=== PATIENT | male | born 1960 | race Caucasian/White ===

== ENCOUNTER 2023-02-05 06:19 | Inpatient (IN) ==
--- NOTE | 2023-01-08 09:58 | PAT Medication Instructions ---
Medication Instructions Date of Service January 08, 2023 Home Medications Medication Instructions Recorded atorvastatin 20 mg tablet 20 mg PO QPM #90 tabs 02/05/22 metoprolol tartrate 25 mg tablet 25 mg PO BID #180 tabs 09/12/22 biotin 5 mg tablet 5 mg PO QAM coenzyme Q10 200 mg capsule 200 mg PO QAM magnesium oxide 500 mg capsule 500 mg PO QAM zinc gluconate 50 mg tablet 50 mg PO QAM calcium carbonate-vitamin D3 [Calcium 600 + D(3)] 1 tab PO QAM glucosamine HCl 750 mg tablet 750 mg PO QAM omega-3 fatty acids [[place]-3] 1 tab PO QAM vitamin B complex 1 tab PO QAM baclofen 20 mg tablet 20 mg PO BID tizanidine 4 mg capsule 8 mg PO HS PRN atorvastatin 20 mg tablet 20 mg PO QPM metoprolol tartrate 25 mg tablet 25 mg PO BID aspirin 81 mg tablet,delayed release 81 mg PO QAM hnulsvaolngcd-snglvimzchanrxpkdl-isnrifjphfdpn capsule 1 cap PO UD PRN ASK your surgeon for instructions wzckirqpaqgkg-idpzjcyaxsbmkkfvzw-ptqzshorikpzv capsule 1 cap PO UD PRN STOP taking 2 weeks before surgery (or as soon as possible if surgery is within 2 weeks) biotin 5 mg tablet 5 mg PO QAM coenzyme Q10 200 mg capsule 200 mg PO QAM glucosamine HCl 750 mg tablet 750 mg PO QAM omega-3 fatty acids [[place]-3] 1 tab PO QAM DO NOT take the morning of surgery magnesium oxide 500 mg capsule 500 mg PO QAM zinc gluconate 50 mg tablet 50 mg PO QAM calcium carbonate-vitamin D3 [Calcium 600 + D(3)] 1 tab PO QAM vitamin B complex 1 tab PO QAM baclofen 20 mg tablet 20 mg PO BID Take morning of surgery With a small sip of water, OTHERWISE NOTHING TO EAT OR DRINK AFTER MIDNIGHT: metoprolol tartrate 25 mg tablet 25 mg PO BID aspirin 81 mg tablet,delayed release 81 mg PO QAM (unless directed otherwise by surgeon) Take evening before surgery baclofen 20 mg tablet 20 mg PO BID tizanidine 4 mg capsule 8 mg PO HS PRN(if needed) atorvastatin 20 mg tablet 20 mg PO QPM metoprolol tartrate 25 mg tablet 25 mg PO BID Other Notes If you have any questions please call us at [phone] or [phone] or [phone] or [phone]
--- NOTE | 2023-01-15 10:08 | History & Physical Report ---
Date of Service January 15, 2023 date of surgery: 02/05/23 Procedure: Left Total Knee Arthroplasty Surgeon: Ag Hernandez Assessment & Plan (1) Arthritis of knee, left: Plan: Risk and benefits of the procedure were discussed, he would like to proceed with a left total knee arthroplasty. Plan will be overnight stay with discharge home with home health physical therapy. Will place on aspirin 81 mg twice a day for 1 month postop DVT prophylaxis he otherwise has no other questions or concerns, follow-up 2 weeks postop The risks and benefits have been discussed including, but not limited to, risk of infection, nerve injury, stiffness, loss of motion, failure to improve, etc. Reasonable outcomes and options of treatment were discussed. An explanation of appropriate alternatives to the procedure that may be advantageous were discussed and their risks and benefits, as well as the risks and benefits of not proceeding with treatment. I offered to answer any additional inquiries concerning the treatment involved. All the patient's questions were answered. The patient is agreeable, understanding of the treatment plan and alternatives, and wishes to proceed with the treatment plan. History of Present Illness Chief Complaint: left knee pain Primary Care Provider: Carter Cintron MD Earnest is a pleasant 62-year-old male presents for preop evaluation prior to his upcoming left total knee replacement on February 05. He has been having pain in his knee for many years, which gradually worsened, he has complaints of pain decreased range of motion and instability. He has a history of left knee arthroscopy by Dr. Varghese in 2013. Since that time he is undergone cortisone injection as well as viscosupplementation with only mild improvement. After discussing further care he would like to proceed with left total knee arthroplasty Allergies Allergy/AdvReac Type Severity Reaction Status Date / Time No Known Drug Allergies Allergy Verified 01/03/23 09:01 Home Medications Medication Instructions Recorded Confirmed Type biotin 5 mg tablet 5 mg PO QAM 05/01/19 01/03/23 History coenzyme Q10 200 mg capsule 200 mg PO QAM 05/01/19 01/03/23 History magnesium oxide 500 mg capsule 500 mg PO QAM 05/01/19 01/03/23 History zinc gluconate 50 mg tablet 50 mg PO QAM 05/01/19 01/03/23 History calcium carbonate-vitamin D3 1 tab PO QAM 07/10/19 01/03/23 History [Calcium 600 + D(3)] glucosamine HCl 750 mg tablet 750 mg PO QAM 07/10/19 01/03/23 History omega-3 fatty acids [[place]-3] 1 tab PO QAM 07/10/19 01/03/23 History vitamin B complex 1 tab PO QAM 07/10/19 01/03/23 History baclofen 20 mg tablet 20 mg PO BID 07/21/20 01/03/23 History tizanidine 4 mg capsule 8 mg PO HS PRN Muscle Spasm 07/21/20 01/03/23 History atorvastatin 20 mg tablet 20 mg PO QPM #90 tabs 02/05/22 01/03/23 Rx metoprolol tartrate 25 mg tablet 25 mg PO BID #180 tabs 09/12/22 01/03/23 Rx aspirin 81 mg tablet,delayed 81 mg PO QAM 01/03/23 01/03/23 History release viqekwcbiersh-ldhwwkflpqnbwjmvrl-yfeftguubvilv 1 cap PO UD PRN Migraine Headache 01/03/23 01/03/23 History capsule Past Med/Surg History Medical History History of atrial fibrillation Since episode approximately 7 years ago Taking metoprolol, Follows with Dr. Mansfield Hyperlipidemia Osteoarthritis Sleep apnea CPAP Temporomandibular joint disorder Wears mouth guard Surgical History History of arthroscopy of left knee History of colonoscopy History of hand surgery left History of hernia surgery x2 History of shoulder surgery left shoulder History of shoulder surgery right shoulder History of surgery left femur/left lower leg History of surgery right femur (multiple) History of wisdom tooth extraction Family History Other No family history of adverse response to anesthesia Social History Smoking Status: Never smoker Second Hand Exposure: No; Do You Dip or Chew Tobacco: No; Hx Alcohol Use: Yes ("on average one cocktail a night") Alcohol type: hard liquor Hx Substance Use: No Preferred Language: Telugu Communication Ability: Effective Tool/Die Maker Required: No Beliefs That Will Affect Care: None Current Living Situation: Spouse Feels Safe at Home: Yes Assistive Devices: CPAP and Glasses Review of Systems Review of Systems: All systems reviewed & are unremarkable except as noted in HPI & below Constitutional: no fever, no chills and no sweats Respiratory: no cough and no dyspnea Cardiovascular: no chest pain, no dyspnea and no orthopnea Gastrointestinal: no abdominal pain, no nausea and no vomiting Musculoskeletal: as per Subjective / HPI Physical Exam Physical Exam: HT: 6ft 3in WT: 95.2kg Constitutional: WD/WN, vitals as above no acute distress Respiratory: normal respiratory effort, lungs clear to auscultation no respiratory distress, no labored breathing and does not use accessory muscles Cardiovascular: RRR, no murmur, no edema Gastrointestinal (Abdomen): normal bowel sounds, soft, nontender, no hepatosplenomegaly Musculoskeletal: Knee: + knee abnormal to inspection (LEFT KNEE: ), + effusion (+1 effusion), + surgical incision (well healed portals), + limited ROM of knee (ROM 0/3/110), + knee ROM with crepitation, + joint line tenderness (medial joint line) and + Terell's sign positive; no deformity, no skin erythema, no ecchymosis, no valgus laxity, no varus laxity, anterior drawer test negative, Harvey's sign negative and pivot shift test negative Results & Data Results & Data Diagnostic Findings Left Knee X-ray: left knee series confirms advanced degenerative changes to the left knee, greatest patellofemoral joint, showing joint space narrowing, osteophyte formation and subchondral sclerosis. no acute bony pathology noted.
--- NOTE | 2023-01-15 11:41 | Anesthesiology Consultation ---
Date of Service January 15, 2023 Assessment & Plan (1) Encounter for pre-operative examination: - COVID screening: Per assessment on 01/15: No known COVID-19 positive contacts or current COVID-19 related symptoms. Travel screen- planned prior to surgery, vacation to [place]. Patient vaccinated. At surgeon discretion if preop Covid testing being done. - Outpatient joint assessment: Pt currently scheduled for inpatient pathway. If surgeon requests review for outpatient joint pathway, patient is not recommended candidate for outpatient joint program from anesthesia standpoint. If surgeon requests further review for outpatient joint pathway consideration, will need to obtain additional information from patient/review with anesthesiologist. - Patient acceptable risk for surgery pending surgeon-ordered cardiology preop evaluation ([facility] [place], appt 01/18). Chart Review Chart Review: Patient seen in Pre Admission Testing Teaching & Discussion Pre-Anesthesia Teaching/Discussion Notes: Instructed NPO after midnight before surgery,except medications with 15 cc of water. Medication instructions provided according to the PAT guidelines. History Surgery Operation Date: 02/05/23 11:00 Proposed Procedures p Left Total Knee Arthroplasty - Ag Hernandez DO Height/Weight Height: 6 ft 3 in Weight: 97.2 kg Allergies Allergy/AdvReac Type Severity Reaction Status Date / Time No Known Drug Allergies Allergy Verified 01/03/23 09:01 Medications Home Medications Medication Instructions Recorded Confirmed Last Taken biotin 5 mg tablet 5 mg PO QAM 05/01/19 01/03/23 Unknown coenzyme Q10 200 mg capsule 200 mg PO QAM 05/01/19 01/03/23 Unknown magnesium oxide 500 mg capsule 500 mg PO QAM 05/01/19 01/03/23 Unknown zinc gluconate 50 mg tablet 50 mg PO QAM 05/01/19 01/03/23 Unknown calcium carbonate-vitamin D3 1 tab PO QAM 07/10/19 01/03/23 Unknown [Calcium 600 + D(3)] glucosamine HCl 750 mg tablet 750 mg PO QAM 07/10/19 01/03/23 Unknown omega-3 fatty acids [[place]-3] 1 tab PO QAM 07/10/19 01/03/23 Unknown vitamin B complex 1 tab PO QAM 07/10/19 01/03/23 Unknown baclofen 20 mg tablet 20 mg PO BID 07/21/20 01/03/23 Unknown tizanidine 4 mg capsule 8 mg PO HS PRN Muscle Spasm 07/21/20 01/03/23 Unknown atorvastatin 20 mg tablet 20 mg PO QPM #90 tabs 02/05/22 01/03/23 Unknown metoprolol tartrate 25 mg tablet 25 mg PO BID #180 tabs 09/12/22 01/03/23 Unknown aspirin 81 mg tablet,delayed 81 mg PO QAM 01/03/23 01/03/23 Unknown release hdyxclshmshtf-maryamvgdjyoyiiwhp-ylvtqhisxtisg 1 cap PO UD PRN Migraine Headache 01/03/23 01/03/23 Unknown capsule Past Medical History Medical History History of atrial fibrillation Single episode approximately 7 years ago Taking metoprolol, Follows with Dr. Mansfield History of headache Hyperlipidemia Osteoarthritis Sleep apnea CPAP (compliant) Temporomandibular joint disorder Wears mouth guard Exercise / Class Metabolic Activity II 4-5 Yardwork/Stairs/Walk up hill (one FS (No CP, no SOB)) Past Family History Family History Other No family history of adverse response to anesthesia Past Surgical History Surgical History History of arthroscopy of left knee History of colonoscopy History of hand surgery left History of hernia surgery x2 History of shoulder surgery left shoulder History of shoulder surgery right shoulder History of surgery left femur/left lower leg History of surgery right femur (multiple) History of wisdom tooth extraction Past Anesthesia History No Hx of Anesthesia Complications and No Family Hx of Anesthesia Complications History of PONV No Hx of PONV and Hx of Motion Sickness (Situational) Social History Smoking Status: Never smoker Do You Dip or Chew Tobacco: No Hx Alcohol Use: Yes Alcohol type: hard liquor alcohol intake frequency: 0-2 drinks per day (1 drink/day (one cocktail/night)) Hx Substance Use: No substance use type: does not use Review of Systems Patient denies chest pain, shortness of breath, dyspnea on exertion, fever, chills, cough, wheezing, palpitations. Physical Exam Vital Signs VITALS BP 137/86 P 55 TEMP 98.5 SP02 95%RA RESP 16 PHYSICAL Full cervical extension range of motion. Full TMJ range of motion. TMD 3 finger breaths Mallampati Score 2 Dentition: intact, + crown (upper left molar) Lungs: clear throughout to auscultation Cardiac: regular rate and rhythm, no murmurs noted Spine: normal Carotid arteries: negative bruit Extremities: no LE edema Lab Results Anesthesia Preop Results Results Anesthesia Widget: WBC 5.31 K/ul (4.8-10.8) 01/15/23 Hgb 12.8 g/dl (14.0-18.0) L 01/15/23 Hct 36.9 % (42.0-52.0) L 01/15/23 Plt 159 K/uL (130-400) 01/15/23 Na 140 mmol/L (136-145) 01/15/23 K 4.1 mmol/L (3.5-5.1) 01/15/23 Cl 108 mmol/L (98-107) H 01/15/23 CO2 28 mmol/L (21-32) 01/15/23 BUN 14 mg/dl (6-23) 01/15/23 Creat 0.84 mg/dl (0.6-1.4) 01/15/23 Glucose Level 98 mg/dl (70-99(Fasting)) 01/15/23 PT 11.6 Seconds (9.0-12.0) 01/15/23 PTT 28.5 Seconds (21.0-31.0) 01/15/23 INR 1.1 (0.9-1.1) 01/15/23 HA1c 5.3 % (4.5-5.6) 01/15/23 Urine Color Yellow 01/15/23 Urine Appearance Clear (Clear) 01/15/23 Urine pH 6.5 (4.5-7.5) 01/15/23 Urine Specific [place] 1.009 (1.000-1.030) 01/15/23 Urine Protein Negative (Negative) 01/15/23 Urine Glucose (UA) Negative (Negative) 01/15/23 Urine Ketones Negative (Negative) 01/15/23 Urine Blood Negative (Negative) 01/15/23 Urine Nitrite Negative (Negative) 01/15/23 Urine Bilirubin Negative (Negative) 01/15/23 Urine Urobilinogen Negative (Negative) 01/15/23 Urine Leukocyte Esterase Negative (Negative) 01/15/23 Blood Type O Positive 01/15/23 Antibody Screen NEGATIVE 01/15/23 Testing Electrocardiogram Date: 01/15/23 SB with first degree AVB at 48bpm. Otherwise normal ECG. No significant change compared to 07/21/21 per print producer comparison. Chest X-Ray Date: 01/15/23 FINDINGS: No lines and tubes are seen. The cardiomediastinal silhouette is normal. Right lung density seen in the frontal radiograph does not correspond to focal density on the lateral radiograph and may represent overlying soft tissue. No evidence of pleural effusion or pneumothorax. IMPRESSION: No acute chest disease. Stress Test Date: 08/05/18 Type: exercise Negative exercise stress echo/ECG for ischemia at 94% MPHR. 12.8 METS. Normal resting LV size and function. EF 60-65%. Mild MR. COVID-19 Risk Screen Screening Information COVID-19 Screen Date: 01/15/23 Exposure 21 Days Family/Household +COVID Last 21 Days: No Exposure 10 Days Any COVID Exposure Last 10 Days: No Symptoms Last 10 Days Experienced COVID Sx Last 10 Days: No + COVID 0-90 Days COVID + in Last 0-90 Days: No
[~2023-02-05 06:19] MED LIST: ACETAMINOPHEN 500 MG TAB PO SCH; CeleBREX 200 MG CAP PO SCH; GABAPENTIN 600 MG DOSE PO SCH; LR 500ML BOLUS, THEN 15ML/HR IV SCH; LR 60ML/HR IV SCH; METOCLOPRAMIDE HCL 10 MG TABLET PO SCH; ROPIVACAINE 0.5% HCL/PF 150 MG, BUPIVACAINE 0.75% MPF 20 ML, EPINEPHrine 30MG/30ML (OR ... INSTIL SCH; TRANEXAMIC ACID 1,000 MG **IV Intra-op IV SCH; TRANEXAMIC ACID 1,000 MG **IV Pre-op IV SCH; ceFAZolin 2000MG 2,000 MG/15 ML SYR IV SCH; dexAMETHasone 4 MG TAB PO SCH
[2023-02-05] MEDS ORDERED: ROPIVACAINE 0.5% 5 MG/ML 30 ML VIAL ONE (06:27)
[2023-02-05] MEDS ORDERED: BUPIVACAINE 0.25% PF 30 ML VIAL ONE (06:27)
[2023-02-05] MEDS ORDERED: EPINEPHrine INJ 1 MG/ML AMP ONE (06:27)
[2023-02-05] MEDS ORDERED: MIDAZOLAM HCL 1 MG/ML 2ML VIAL ONE ×2 (06:44)
[2023-02-05] MEDS ORDERED: fentaNYL citrate PF 100 MCG/2 ML VIAL ONE (06:44)
[2023-02-05] MEDS ORDERED: LIDOCAINE 2% 2 ML VIAL/AMP(20MG/ML) INFIL ONE (06:45)
[2023-02-05] MEDS ORDERED: PROPOFOL IV EMULSION 10 MG/ML 20 ML VIAL IV ONE ×2 (06:45→09:00)
[2023-02-05] MEDS ORDERED: DEXAMETHASONE SOD INJ 4 MG/ML VIAL ONE (06:45)
[2023-02-05] MEDS ORDERED: ONDANSETRON INJ 2 MG/ML 2 ML VIAL ONE (06:45)
[2023-02-05] MEDS ORDERED: ORTHO JOINT ANESTHETIC ONE (07:11)
--- NOTE | 2023-02-05 07:32 | History & Physical Bridge Note ---
Date of Service February 05, 2023 History & Physical Bridge Note I have examined the patient, reviewed the History & Physical and in the interval since the performance of the History & Physical I have noted the following changes of clinical significance: no changes noted
[2023-02-05] MEDS ORDERED: ATROPINE SULFATE 0.1 MG/ML 10ML SYR IV PRN (07:55)
[2023-02-05] MEDS ORDERED: fentaNYL citrate PF 100 MCG/2 ML VIAL IV PRN (07:55)
[2023-02-05] MEDS ORDERED: ePHEDrine sulfate 50 MG/ML AMP IV PRN (07:55)
[2023-02-05] MEDS ORDERED: HYDROmorphone INJ 2 MG/ML SYR/VIAL IV PRN (07:55)
[2023-02-05] MEDS ORDERED: ONDANSETRON INJ 2 MG/ML 2 ML VIAL IV PRN ×2 (07:55→11:34)
--- NOTE | 2023-02-05 10:19 | Operative Report ---
Post Operative Report Pre & Post Diagnosis Operation Date: 02/05/23 08:15 Pre-Op Diagnosis: Left Knee Osteoarthritis Post-Op Diagnosis: Left Knee Osteoarthritis I identified the patient and participated in the time-out.: Yes Procedure Operation Date: 02/05/23 08:15 Actual Procedures p Left Total Knee Arthroplasty(Left)Utilizing [employer]ai [employer] NephAddFleet journey 2 patient matched total knee arthroplasty size femur 9 tibia 8 Poly 10 patella 38 marlee - Ag Hernandez DO Surgeon Ag Hernandez DO Skiver U[employer] Linings Corey CASTRO Estimated Blood Loss 5 Findings Consistent with Post-Op Diagnosis Patient presents with severe end-stage tricompartmental degenerative joint disease of the left knee no response to conservative management patient's failed attempted conservative management occluding physical therapy anti-inflammatories relative rest activity modifications patient has a severe end-stage tricompartmental DJD eburnated [id number]-[id number]-efsn subchondral sclerosis marginal osteophytes Specimens Bone and cartilage Drains Medium bore Hemovac Anesthesia Type MAC Spinal Regional Complications none Disposition Accompanied Patient To Recovery: No Disposition: Recovery Room Indications Patient presents with severe end-stage tricompartmental DJD after failed attempted conservative management occluding physical therapy anti-inflammatories relative rest activity modification corticosteroid injection viscosupplementation above intraoperative findings were noted Description of Procedure After proper prepping and draping of the left lower extremity anterior midline incision was made over the region of the extensor extensor mechanism after meticulous hemostasis was obtained and maintained in subcutaneous tissues a medial parapatellar incision was made The patella was subluxed lateralward the medial lateral gutter were cleaned from any hypertrophic synovitis and scar tissue of the distal femoral block was placed and the distal femoral osteotomy cut was made subsequently the chamfers anterior and posterior osteotomy cuts were made utilizing the 4-in-1 block the tibia was subsequently subluxed ant eriorward medial and ateral meniscal remnants were excised in their entirety remnants of the anterior and posterior cruciate ligaments were excised in their entirety excellent exposure of the proximal tibia was obtained the tibial osteotomy guide was placed on the proximal tibial osteotomy cut was made once again the knee was irrigated with copious amounts of sterile saline solution the patella was subsequently everted lateralward thickened scar tissue around the patella was removed the patella was subsequently cut utilizing a freehand technique and was drilled prepared for final preparation and placement of patella socially flexion-extension gaps were checked and the equal and symmetric trials were placed to the appropriate femoral and tibial trials with poly-spacer being placed for equal flexion and extension gaps and full range of motion including extension to 0 and flexion to 140 the trial components after having been taken to recovery range of motion was subsequently removed meticulous hemostasis was obtained and maintained subsequently a knee block injection of joint cocktail including ropivacaine 0.5% 150 mg. Bupivacaine 0.5% epinephrine 1-200,030 mL's toradol 30 mg dexamethasone 4 mg ketamine 10 mg clonidine 100 micrograms normal saline solution 30 mg was infiltrated into the soft tissues of the posterior knee medial lateral gutters and periosteal synovium special at tention was paid to protect neurovascular structures at all times subsequently trial components having been removed the knee was irrigated with sterile saline solution. debris was removed the proximal tibia was subsequently prepared and was made ready for the placement of the tibial component tibial component was also cemented and tamped into position the femoral component was subsequently placed and cemented in the position the patellar component was subsequently cemented in position because hemostasis once again obtained and maintained wound having been thoroughly irrigated with debridement and debridement lavage was performed as well as a medial parapatellar incision closed with #1 Vicryl in interrupted fashion subcutaneous was closed with #2 Vicryl skin was closed with skin clips. PA-C was necessary for prepping and drapping as well as wound closure of deep fascia Sub cutaneous tissue and skin and was necessary for the case. A sterile compressive dressing was placed patient was taken to recovery in stable condition of report dictated by David I attest to the content of the Intraoperative Record and any orders documented therein. Any exceptions are noted below.Due to the complex nature of the procedure, the entire surgery was performed with the operational assistance of MATTHEW Callaway. The retail event assistant, under direct supervision, was involved in the actual performance of all aspects of the surgical procedure including hemostasis, tissue retraction and incision, instrument management, patient positioning, and wound closure. I attest to the content of the Intraoperative Record and any orders documented therein. Any exceptions are noted below.
--- NOTE | 2023-02-05 11:15 | XRay Report ---
TWO VIEWS LEFT KNEE CLINICAL HISTORY: Postoperative examination. FINDINGS: AP and crosstable lateral portable views of the left knee are obtained. A left knee arthrop lasty is in near anatomic alignment. There has been undersurface remodeling of the patella. No acute fracture is seen. There are expected postoperative changes around the knee including a surgical drain , soft tissue edema, and subcutaneous gas. IMPRESSION: Expected postoperative changes status post left knee arthroplasty. No acute fracture is s een. ACT 112: Negative or not required by law. Electronically signed by: Sivakumar Saenz M.D. 02/05/2023 11:13 AM
[2023-02-05] MEDS ORDERED: [UNRECOGNIZED DRUG - OTHER] PO PRN (11:34)
[2023-02-05] MEDS ORDERED: HYDROmorphone INJ 1 MG/ML SYRINGE IV PRN (11:34)
[2023-02-05] MEDS ORDERED: NALOXONE HCL 0.4 MG/1 ML VIAL/CARP IV PRN (11:34)
[2023-02-05] MEDS ORDERED: diphenhydrAMINE Capsule 25 MG CAP PO PRN (11:34)
[2023-02-05] MEDS ORDERED: bisacodyL 10 MG SUPP PR PRN (11:34)
[2023-02-05] MEDS ORDERED: ISOMETHEPTENE PO PRN (11:34)
[2023-02-05] MEDS ORDERED: METOCLOPRAMIDE HCL INJ 5 MG/ML 2 ML VIAL IV PRN (11:34)
[2023-02-05] MEDS ORDERED: ACETAMINOPHEN PO PRN (11:34)
[2023-02-05] MEDS ORDERED: MAGNESIUM HYDROXIDE SUSP 30 ML UDC PO PRN (11:34)
[2023-02-05] MEDS ORDERED: oxyCODONE HCL IR 5 MG TAB (IMMEDIATE RELEASE) PO PRN (11:34)
[2023-02-05] MEDS: SODIUM CHLORIDE 0.9% 1000ML 1,000 ML IV SCH ×2 (11:50→21:31)
[2023-02-05] MEDS: KETOROLAC TROMETHAMINE 15 MG/ML VIAL IV SCH ×3 (12:46→23:52)
--- NOTE | 2023-02-05 13:09 | Anesthesiology Progress Note ---
Date of Service February 05, 2023 Anesthesia Post Procedure Vital Signs Vital Signs: Temp Pulse Pulse Resp BP Pulse Ox O2 Del Method 02/05/23 12:44 56 L 18 135/84 96 Room Air 02/05/23 12:17 36.8 C 54 L 14 134/78 96 Room Air 02/05/23 11:45 36.4 C L 53 L 18 126/80 94 Room Air 02/05/23 11:10 36.6 C 54 L 16 118/80 95 Room Air 02/05/23 11:00 52 L 17 110/80 99 Oxymask 02/05/23 10:51 36.8 C 52 L 17 136/78 95 Oxymask 02/05/23 06:51 36.8 C 56 L 20 149/93 H 97 Room Air O2 Flow Rate 02/05/23 12:44 02/05/23 12:17 02/05/23 11:45 02/05/23 11:10 02/05/23 11:00 5 02/05/23 10:51 5 02/05/23 06:51 Transfer of Care Handoff Completed per policy Notes Mental Status: alert / awake / arousable and participated in evaluation Patient Amnestic to Procedure: Yes Nausea / Vomiting: adequately controlled Pain: adequately controlled Airway Patency, RR, SpO2: stable & adequate BP & HR: stable & adequate Hydration State: stable & adequate Neuraxial Anesthesia: was administered and sensory block is resolving Anesthetic Complications: no major complications apparent and Pt Satisfied with anesthetic care
[2023-02-05] MEDS: ACETAMINOPHEN 500 MG TAB PO SCH ×2 (13:45→22:18)
[2023-02-05] MEDS: ceFAZolin 2000MG 2,000 MG/15 ML SYR IV SCH ×2 (16:10→23:53)
[2023-02-05] MEDS ORDERED: ATORVASTATIN 20 MG TAB PO SCH (21:00)
[2023-02-05] MEDS ORDERED: SENNA 8.6 MG TAB PO SCH (21:00)
[2023-02-05] MEDS: ASPIRIN 81 MG ECTAB PO SCH (21:24)
[2023-02-05] MEDS: METOPROLOL TARTRATE 25 MG TAB PO SCH (21:25)
[2023-02-05] MEDS: BACLOFEN 20 MG TAB PO SCH (21:25)
[2023-02-05] MEDS: DOCUSATE SODIUM 100 MG CAP PO SCH (21:26)
[2023-02-06] MEDS: KETOROLAC TROMETHAMINE 15 MG/ML VIAL IV SCH (05:57)
[2023-02-06] MEDS: ACETAMINOPHEN 500 MG TAB PO SCH (05:58)
[2023-02-06 07:02] LABS: Hematocrit (blood only) 27.4 % (42.0-52.0); Hemoglobin 9.5 g/dl (14.0-18.0); Mean Corpuscular Hemoglobin 29.8 pg (25.0-34.0); Mean Corpuscular Hgb Conc 34.7 g/dL (32.0-36.0); Mean Corpuscular Volume 85.9 fL (80.0-100.0); Mean Platelet Volume 9.7 fL (9.4-12.4); Platelet Count 147 K/uL (130-400); RDW Standard Deviation 40.6 fL (36.4-46.3); Red Blood Count 3.19 M/uL (4.70-6.10); White Blood Count 11.53 K/ul (4.8-10.8)
[2023-02-06] MEDS: METOPROLOL TARTRATE 25 MG TAB PO SCH (07:26)
[2023-02-06] MEDS: ASPIRIN 81 MG ECTAB PO SCH (07:27)
[2023-02-06] MEDS: DOCUSATE SODIUM 100 MG CAP PO SCH (07:27)
[2023-02-06] MEDS: BACLOFEN 20 MG TAB PO SCH (07:27)
[2023-02-06 07:35] LABS: BUN Creatinine Ratio 29.2 (10-20); Calcium 8.1 mg/dl (8.6-10.3); Creatinine Clr Calc Pharmacy 104.2 ml/min; Est GFR (Non-African American) 92.3 ml/min
[2023-02-06] MEDS ORDERED: MAGNESIUM OXIDE 400 MG TAB PO SCH (09:00)
[2023-02-06] MEDS ORDERED: ZINC SULFATE 220 MG CAPSULE PO SCH (09:00)
[2023-02-06] MEDS ORDERED: CALCIUM 600MG + VIT D 400 IU TAB PO SCH (09:00)
[2023-02-06] MEDS ORDERED: CeleBREX 200 MG CAP PO SCH (09:00)
[2023-02-06] MEDS ORDERED: VITAMIN B COMPLEX TAB PO SCH (09:00)
[2023-02-06] MEDS ORDERED: MULTIVITAMIN TAB PO SCH (09:00)
--- NOTE | 2023-02-06 09:36 | Orthopedic Progress Note ---
Date of Service February 06, 2023 Assessment & Plan (1) Arthritis of knee, left: Plan: POD #1 s/p left TKA pt/ot dvt proph with MARCY/SCD/ASA plan for d/c home with HHPT after PT today Admission and Anticipated Discharge Date Admission Date: February 05, 2023 Subjective POD #1 s/p Left TKA Review of Systems Constitutional: no fever, no chills and no sweats Respiratory: no cough and no dyspnea Cardiovascular: no chest pain and no dyspnea Gastrointestinal: no abdominal pain, no nausea and no vomiting Physical Exam Physical Exam: Vital Signs Temp 36.6 C 02/06/23 06:57 Pulse 55 L 02/06/23 06:57 Resp 18 02/06/23 06:57 BP 107/62 02/06/23 06:57 Pulse Ox 95 02/06/23 06:57 O2 Del Method Room Air 02/06/23 06:57 O2 Flow Rate 2 02/06/23 00:02 Intake & Output 02/05/23 02/06/23 02/06/23 18:59 06:59 18:59 Intake Total 1500 / 3468.333 1967.333 / 3468.33 3 Output Total 2370 / 2980 610 / 2980 25 / Balance -870 / 197.903 2857.333 / 488.333 -25 / -25 Weight 96 kg Intake: IV 200 / 2168.333 1967.333 / 2168.33 3 Lactated Ringe r's 1,000 ml @ 15 0 / 0 mls/hr IV .Q24 H [facility] Rx#: [id number] Sodium Chlorid e 0.9% 1000ML 1967.333 / 1967.33 3 000 ml @ 100 m ls/hr IV .Q10H [facility] Rx#:[id number] Tranexamic Aci d / 0.7% NaCl 1, 200 / 200 000 mg In 100 ml @ 600 mls/hr IV TODAY@0600 HOLLY Rx#:[id number] IV Perioperative 1300 / 1300 Output: Urine 2000 / 2400 400 / 2400 Estimated Blood Loss 5 / 5 Drain Output 365 / 575 210 / 575 25 / 25 Left Knee Hemo vac 365 / 575 210 / 575 / 25 Musculoskeletal: Left Leg: NVDI, calf SNT, negative annelise sign. DP palpable, able to wiggle toes/ankle movement without difficulty. dressing clean dry and intact. Results & Data Vital Signs (Past 12 Hours) Vital Signs Temp Pulse Resp BP Pulse Ox O2 Del Method O2 Flow Rate 02/06/23 06:57 36.6 C 55 L 18 107/62 95 Room Air 02/06/23 04:00 59 L 20 112/68 94 Room Air 02/06/23 00:02 20 110/68 98 Nasal Cannula 2 02/05/23 21:45 96/58 L 02/05/23 21:40 59 L 16 96/53 L 98 Nasal Cannula 2 Laboratory Results Laboratory Results WBC 11.53 K/ul (4.8-10.8) H 02/06/23 06:23 RBC 3.19 M/uL (4.70-6.10) L 02/06/23 06:23 Hgb 9.5 g/dl (14.0-18.0) L 02/06/23 06:23 Hct 27.4 % (42.0-52.0) L 02/06/23 06:23 MCV 85.9 fL (80.0-100.0) 02/06/23 06:23 MCH 29.8 pg (25.0-34.0) 02/06/23 06:23 MCHC 34.7 g/dL (32.0-36.0) 02/06/23 06:23 RDW Std Deviation 40.6 fL (36.4-46.3) 02/06/23 06:23 RDW Coeff of Fanta 13.0 % (11.5-14.5) 02/06/23 06:23 Plt Count 147 K/uL (130-400) 02/06/23 06:23 MPV 9.7 fL (9.4-12.4) 02/06/23 06:23 Sodium 137 mmol/L (136-145) 02/06/23 06:23 Potassium 4.0 mmol/L (3.5-5.1) 02/06/23 06:23 Chloride 107 mmol/L (98-107) 02/06/23 06:23 Carbon Dioxide 26 mmol/L (21-32) 02/06/23 06:23 Anion Gap 4 (3-11) 02/06/23 06:23 BUN 26 mg/dl (6-23) H 02/06/23 06:23 Creatinine 0.89 mg/dl (0.6-1.4) 02/06/23 06:23 Est Cr Clr Drug Dosing 104.2 ml/min 02/06/23 06:23 Est GFR ( Amer) 107.0 ml/min 02/06/23 06:23 Est GFR (Non-Af Amer) 92.3 ml/min 02/06/23 06:23 BUN/Creatinine Ratio 29.2 (10-20) H 02/06/23 06:23 Glucose 127 mg/dl (70-99(Fasting)) H 02/06/23 06:23 POC Glucose 148 mg/dl (70-99) H 02/05/23 21:37 Calcium 8.1 mg/dl (8.6-10.3) L 02/06/23 06:23 SARS-CoV-2, RNA, NAAT NEGATIVE (NEGATIVE) 02/05/23 06:30 Impressions Knee X-Ray 02/05/23 09:33 TWO VIEWS LEFT KNEE CLINICAL HISTORY: Postoperative examination. FINDINGS: AP and crosstable lateral portable views of the left knee are obtained. A left knee arthroplasty is in near anatomic alignment. There has been undersurface remodeling of the patella. No acute fracture is seen. There are ex pected postoperative changes around the knee including a surgical drain, soft tissue edema, and subcutaneous gas. IMPRESSION: Expected postoperative changes status post left knee arthroplasty. No acute fracture is seen. ACT 112: Negative or not required by law. Electronically signed by: Sivakumar Saenz M.D. 02/05/2023 11:13 AM
--- NOTE | 2023-02-06 10:08 | Discharge Summary ---
Date of Service date of discharge: February 06, 2023 Date of admission: 02/05/23 Admission HPI Per Admitting Provider Earnest is a pleasant 62-year-old male presents for preop evaluation prior to his upcoming left total knee replacement on February 05. He has been having pain in his knee for many years, which gradually worsened, he has complaints of pain decreased range of motion and instability. He has a history of left knee arthroscopy by Dr. Varghese in 2013. Since that time he is undergone cortisone injection as well as viscosupplementation with only mild improvement. After discussing further care he would like to proceed with left total knee arthroplasty Principal Diagnosis left knee osteoarthritis Discharge Exam Vital Signs Temp 36.6 C 02/06/23 06:57 Pulse 55 L 02/06/23 06:57 Resp 18 02/06/23 06:57 BP 107/62 02/06/23 06:57 Pulse Ox 95 02/06/23 06:57 O2 Del Method Room Air 02/06/23 06:57 O2 Flow Rate 2 02/06/23 00:02 Intake & Output 02/05/23 02/06/23 02/06/23 18:59 06:59 18:59 Intake Total 1500 / 3468.333 1968.333 / 3468.333 Output Total 2370 / 2980 610 / 2980 Balance -870 / 059.866 1863.333 / 488.333 -25 / -25 Weight 96 kg Intake: IV 200 / 2168.333 1968.333 / 2168.333 Lactated Ringer's 1,000 ml @ 15 0 / 0 mls/hr IV .Q24H [facility] Rx#: [id number] Sodium Chloride 0.9% 1000ML 1967.333 / 1968.333 000 ml @ 100 mls/hr IV .Q10H [facility] Rx#:[id number] Tranexamic Acid / 0.7% NaCl 1, 200 / 200 000 mg In 100 ml @ 600 mls/hr IV TODAY@0600 [facility] Rx#:[id number] IV Perioperative 1300 / 1300 Output: Urine 2000 / 2400 400 / 2400 Estimated Blood Loss 5 / 5 Drain Output 365 / 575 210 / 575 25 / 25 Left Knee Hemovac 365 / 575 210 / 575 / Musculoskeletal Left knee: NVDI, calf SNT, negative annelise sign. DP palpable, able to wiggle toes/ankle movement without difficulty. dressing clean dry and intact. Discharge Data Allergies Allergy/AdvReac Type Severity Reaction Status Date / Time No Known Drug Allergies Allergy Verified 02/05/23 06:42 Procedures Performed Operation Date: 02/05/23 08:15 Actual Procedures p Left Total Knee Arthroplasty(Left) - Ag Umaña DO Ordered Studies 02/05/23 05:00 US - OR guided needle placemen Routine Hospital Course (1) Arthritis of knee, left: POD #1 s/p left TKA pt/ot dvt proph with MARCY/SCD/ASA plan for d/c home with HHPT after PT today Total Time Total Time Spent Total Time Spent (In Minutes): 20 Discharge Plan Discharge Items Patient Disposition: Home - Home Health Services Reason For Visit: Left Knee Osteoarthritis Discharge Diagnosis: left total knee arthroplasty Activity: Per Instructions section Weightbearing Comment: wbat with walker Non-emergency contact: Surgeon Call non-emergency contact if: you have any medication questions, your temperature is above 101, your wound has increased redness, your wound has i ncreased drainage and your wound pain has increased Follow-up/Referrals: Carter Cintron MD [Primary Care Provider] - Diet: Regular Addtl Attending Provider Instructions: ACTIVITY RECOMMENDATIONS: SELF CARE INSTRUCTIONS AFTER TOTAL KNEE REPLACEMENT A. You may need to continue a physical therapy program after discharge from the hospital. There are several options available to you. Your doctor will assist you in selecting the best one for you. 1. An out-patient facility 2 to 3 times a week for therapy or home therapy. 2. Continue working on all exercises taught to you in the hospital. Your goals should be to increase bending of your knee to 90 degrees and beyond and to fully straighten your knee. B. You may progress at your own pace from walking with a walker or crutches to a cane; then to no assistive devices. C. Make walking a part of your daily routine. Be up as much as comfortable with rest periods throughout the day. Rest with leg elevation is very important. Use the ice wrap frequently for the first 3-4 weeks. D. There are no restrictions on activities. You may ride in a car, shop, participate in spread cutter and all social activities. E. Wear the long elastic stockings (MARCY hose) 20 hours a day for 2 weeks after surgery. They can be removed several times a day for laundering and for a bath. F. You may shower, no tub baths until cleared by your doctor. SPECIAL CARE INSTRUCTIONS: VERY IMPORTANT TO READ AND REVIEW A. There are a few signs you need to watch for after you are home. Call [facility] [place] if you notice any of the followin. Increased severe knee pain. Some pain is expected especially when you exercise. 2. Increased swelling in your leg or knee; pain or swelling of the calf muscle in either lower leg. 3. Any fluid drainage from the incision. 4. Shortness of breath or chest pain. B. Please call [facility] at if you have any concerns or questions about your operation or recovery. The doctor or his nurse will return your call promptly. C. You must take antibiotics before dental work, bladder, bowel or other surgery. Your doctor will provide you with a permanent care to carry describing this precaution. IMPORTANT: * REMEMBER TO TAKE ASPIRIN, 81 MG, TWICE DAILY FOR 4 WEEKS UNLESS OTHERWISE DIRECTED. THIS IS YOUR BLOOD THINNER. * HIGH RISK PATIENTS MAY BE PRESCRIBED A STRONGER BLOOD THINNER. THIS WILL BE PROVIDED AT DISCHARGE. * CALL IF INCREASED PAIN, REDNESS, DRAINAGE OR FEVER GREATER THAT 101. * WEAR MARCY HOSE 20 HOURS PER DAY FOR 2 WEEKS. DRESSING INSTRUCTIONS * ARLETH Dressing- This is a large suction dressing covering your incision. This will help pull any excess drainage from the wound and allow your incision to heal properly. You may shower with this if you can keep the unit outside of the shower. If any bleeding or leakage is noted please call your doctor's office. This will remain on your incision for 7 days and then should be removed. This can be done yourself or by the home nursing staff if applicable. The entire unit is disposable once removed. Once removed, keep incision clean and dry. If redness or drainage is noted, please call your surgeon. ONCE ARLETH IS REMOVED, FOLLOW THESE INSTRUCTIONS: DERMABOND Prineo- This is a mesh tape dressing that is covered with glue. It should remain in place until the incision is properly healed, usually 10-14 days. This dressing is designed to naturally slough off. You may trim the e xcess mesh tape as it peels off. Incision may be briefly wet in a shower. Dry immediately by blotting with a clean, dry towel. Do not bath or swim until instructed by your doctor. Do not scratch, rub, or pick at the dressing. Do not apply any topical ointments or lotions until dressing is completely removed and/or instructed by your doctor. There may be a small piece of suture material at one end of your incision. Do not pull or trim this. If it is bothersome or catching on clothing, you may cover it with a band-aid. IF INCISION IS LEAKING THROUGH DRESSING, CALL THE OFFICE . FOLLOW UP VISIT: If appointment is not already scheduled: Please call [facility] to make a follow-up appointment for 2 weeks after your surgery at . Pending Studies at Discharge: No Stand-Alone Forms: My [facility] Medications and DC Order Prescriptions: New acetaminophen 500 mg tablet 1,000 mg PO Q8 21 Days Qty: 126 0RF aspirin 81 mg tablet,delayed release (DR/EC) 81 mg PO BID 30 Days Qty: 60 0RF celecoxib [Celebrex] 200 mg capsule 200 mg PO BID 30 Days Qty: 60 0RF cefadroxil 500 mg capsule 500 mg PO BID 14 Days Qty: 28 0RF docusate sodium 100 mg Capsule 100 mg PO BID Qty: 20 0RF oxycodone 5 mg tablet 5 - 10 mg PO Q6H PRN (Reason: pain) Qty: 30 0RF Rx Instructions: ongoing therapy, supervising dr sonido umaña. max 6 tabs in 24 hours Continued metoprolol tartrate 25 mg tablet 25 mg PO BID Qty: 180 3RF baclofen 20 mg tablet 20 mg PO BID Rx Instructions: 2-3 times per day biotin 5 mg tablet 5 mg PO QAM magnesium oxide 500 mg capsule 500 mg PO QAM zinc gluconate 50 mg tablet 50 mg PO QAM calcium carbonate-vitamin D3 1 tab PO QAM Rx Instructions: 1 tablet PO daily; vitamin B complex 1 tab PO QAM Rx Instructions: 1 tablet PO daily; Midrin Capsule 1 cap PO UD PRN (Reason: Migraine Headache) Discontinued coenzyme Q10 200 mg capsule 200 mg PO QAM glucosamine HCl 750 mg tablet 750 mg PO QAM omega-3 fatty acids 1 tab PO QAM Rx Instructions: 1 tablet PO daily; aspirin 81 mg tablet,delayed release (DR/EC) 81 mg PO QAM No Action atorvastatin 20 mg tablet 20 mg PO QPM Qty: 90 3RF Admission Data Admit Date/Time: 02/05/23 09:33 Attending Provider: Ag Umaña Admit Provider: Ag Umaña Primary Care Provider: Carter Cintron Other Providers: [facility]
== END 2023-02-06 11:40 | disposition home health service (06) | DRG 470 ==
LOC: 3E 06:19 → ASU 06:19 → OBSVTOIN 09:33